=== PATIENT | female | born 2000 | race Caucasian/White ===

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

== ENCOUNTER 2021-07-05 19:18 | Emergency (ER) | payer BC ==
[2021-07-05] MEDS ORDERED: PREDNISONE20 MG PO (23:20)
[2021-07-05] MEDS ORDERED: BENADRYL 25MG C25 MG PO (23:20)
[2021-07-05] MEDS ORDERED: EPIPEN 2-P0.3 MG/0.3 INJ (23:22)
== END 2021-07-05 23:30 | disposition home or self-care (01) ==
LOC: ER1 19:18
DX: L50.0 Allergic urticaria (principal); L27.0 Generalized skin eruption due to drugs and medicaments taken internally; T36.8X5A Adverse effect of other systemic antibiotics, initial encounter
CPT/HCPCS: 81001; 87086; 96374; 96375; 99283; J1200; J2930

== ENCOUNTER → 2022-03-06 | Outpatient (CLI) | payer BC ==
[~2022-03-06] MED LIST changes: +BENADRYL 25MG C25 MG PO; +EPIPEN 2-P0.3 MG/0.3 INJ; +PREDNISONE20 MG PO
== END ==
LOC: LAB 08:00
DX: G40.909 Epilepsy, unspecified, not intractable, without status epilepticus (principal); Z20.822 Contact with and (suspected) exposure to COVID-19
CPT/HCPCS: 36415; U0002